=== PATIENT | female | born 1985 | race Caucasian/White ===

== ENCOUNTER → 2024-04-13 12:27 | Outpatient (CLI) | payer OTHER, SELFPAY ==
--- NOTE | 2024-04-13 12:36 | DI.RAD.S_ITS ---
PROCEDURE: XR CHEST 2V INDICATIONS: DIABETIS/SHORTNESS OF BREATH TECHNIQUE: 2 views of the chest were acquired. COMPARISON: None. FINDINGS: Surgical changes and devices: None. Lungs and pleura: Lungs are clear. No pleural effusions or pneumothorax. Mediastinum: Mediastinal contours are normal. Heart size is normal. Bones and chest wall: No suspicious bony abnormalities. Soft tissues appear unremarkable. IMPRESSION: Normal chest radiograph. Dictated by: Wilfred Rizzo M.D. on 04/14/2024 at 10:00 Approved by: Wilfred Rizzo M.D. on 04/14/2024 at 10:02
[2024-04-13 13:53] LABS: Alanine Aminotransferase 12 IU/L (<35); Albumin 4.6 g/dL (3.5-5.0); Albumin Globulin Ratio 1.7 (1.0-2.8); Alkaline Phosphatase 51 U/L (38-126); Aspartate Aminotransferase 21 IU/L (14-36); Blood Urea Nitrogen 8 mg/dL (7-17); Calcium 9.1 mg/dL (8.4-10.2); Carbon Dioxide 22 mmol/L (22-32); Chloride 103 mmol/L (98-107); Estimated Glomerular Filt Rate > 60 mL/min (>60); Globulin 2.7 g/dL (1.7-4.1); Glucose 93 mg/dL (70-100); HEMOLYSIS < 15 (0-50); Potassium 4.2 mmol/L (3.4-5.1); Sodium 137 mmol/L (137-145); Total Protein 7.3 g/dL (6.3-8.2)
[2024-04-13 14:09] LABS: Appearance Urine UA CLEAR; Bilirubin Urine UA NEGATIVE (NEGATIVE); Color Urine UA YELLOW; Glucose Urine UA NEGATIVE (Negative); Ketones Urine UA NEGATIVE (NEGATIVE); Leukocyte Esterase Urine UA NEGATIVE (NEGATIVE); Nitrite Urine UA NEGATIVE (Negative); Occult Blood Urine UA NEGATIVE (Negative); Protein Urine UA NEGATIVE (Negative); Urobilinogen Urine UA 0.2 E.U./dL (0.2)
[2024-04-13 14:47] LABS: Bacteria Urine None Seen; Culture Indicated Urine Cult Not Indicated; Mucus Urine 1+ (Negative); RBC Urine None Seen (0-5/HPF); Squamous Epithelial Cell Urine 1-5 /HPF (0-5/HPF); Urine Volume 10mL (spun); WBC Urine 0-1/HPF (0-5/HPF)
== END ==
PROVIDERS: Referring Provider Chiropractor; Visit Provider Chiropractor
DX: R06.02 Shortness of breath (principal); E11.9 Type 2 diabetes mellitus without complications; F17.210 Nicotine dependence, cigarettes, uncomplicated
CPT/HCPCS: 71046; 80053; 81001; 94060

== ENCOUNTER → 2024-05-05 15:04 | Outpatient (CLI) | payer OTHER, SELFPAY ==
--- NOTE | 2024-05-05 15:07 | DI.RAD.S_ITS ---
PROCEDURE: XR HAND RT 2V INDICATIONS: Other specified arthritis, unspecified site TECHNIQUE: 2 views of the hand(s) acquired. COMPARISON: None. FINDINGS: Bones: No fractures or dislocations. Carpal bones are normally aligned. No suspicious bony lesions. Soft tissues: No suspicious soft tissue calcifications. IMPRESSION: No acute bony abnormality. Dictated by: Josh Kirkpatrick M.D. on 05/07/2024 at 9:05 Approved by: Josh Kirkpatrick M.D. on 05/07/2024 at 9:05
--- NOTE | 2024-05-05 15:07 | DI.RAD.S_ITS ---
PROCEDURE: XR WRIST RT 2V INDICATIONS: Other specified arthritis, unspecified site TECHNIQUE: 2 views of the wrist were acquired. COMPARISON: None. FINDINGS: Bones: No fractures or dislocations. No suspicious bony lesions. Soft tissues: No suspicious soft tissue calcifications. IMPRESSION: No acute bony abnormality. Dictated by: Josh Kirkpatrick M.D. on 05/07/2024 at 9:05 Approved by: Josh Kirkpatrick M.D. on 05/07/2024 at 9:06
--- NOTE | 2024-05-05 15:07 | DI.RAD.S_ITS ---
PROCEDURE: XR HAND LT 2V INDICATIONS: Other specified arthritis, unspecified site TECHNIQUE: 2 views of the hand(s) acquired. COMPARISON: None. FINDINGS: Bones: No fractures or dislocations. Carpal bones are normally aligned. No suspicious bony lesions. Soft tissues: No suspicious soft tissue calcifications. IMPRESSION: No acute bony abnormality. Dictated by: Josh Kirkpatrick M.D. on 05/07/2024 at 9:06 Approved by: Josh Kirkpatrick M.D. on 05/07/2024 at 9:06
--- NOTE | 2024-05-05 15:07 | DI.RAD.S_ITS ---
PROCEDURE: XR WRIST LT MIN 3V INDICATIONS: Other specified arthritis, unspecified site TECHNIQUE: 2 views of the wrist were acquired. COMPARISON: None. FINDINGS: Bones: No fractures or dislocations. No suspicious bony lesions. Soft tissues: No suspicious soft tissue calcifications. IMPRESSION: No acute bony abnormality. Dictated by: Josh Kirkpatrick M.D. on 05/07/2024 at 9:07 Approved by: Josh Kirkpatrick M.D. on 05/07/2024 at 9:08
== END ==
LOC: RAD 15:05
PROVIDERS: Referring Provider Chiropractor; Visit Provider Chiropractor
DX: M13.80 Other specified arthritis, unspecified site (principal)
CPT/HCPCS: 73100; 73120

== ENCOUNTER → 2024-06-06 08:50 | Outpatient (CLI) | payer OTHER, SELFPAY ==
--- NOTE | 2020-06-06 09:39 | DI.US.S_ITS ---
Patient Name: STAN MCFADDEN date: 1985 Sex: F Attending Physician: Faiza Indications: Date: 06/06/2024 09:58 At the request of: CARLITO LAW Procedure: US breast RT limited LIMITED ULTRASOUND OF RIGHT BREAST: 06/06/2024 CLINICAL: Palpable right breast lump. Comparison is made to exam dated: 06/06/2024 mammogram - [facility]. Real-time ultrasound of the right breast retroareolar was performed. Bazan scale images of the real-time examination were reviewed. No significant abnormalities were seen sonographically in the right breast. Specifically, no finding to correspond to the patient's 11:00 right breast palpable abnormality. There is very dense fibroglandular tissue in this region. IMPRESSION: PROBABLY BENIGN No sonographic correlate to the right breast palpable abnormality. Clinical follow up is recommended for symptoms as needed. A follow-up mammogram in 6 months is recommended to demonstrate stability or incidental, probably benign right breast calcifications. Findings and recommendations were conveyed to the patient at time of exam. This exam was interpreted at Station ID: [id number]. Electronically Signed By: Chayito sheffield/:06/06/2024 09:58:06 Continued Report - Page 2 of 2 Patient Name: STAN MCFADDEN date: 1985 Sex: F Attending Physician: Faiza Indications: Date: 06/06/2024 09:58 At the request of: CARLITO LAW Procedure: US breast RT limited letter sent: Followup Recommended ACR BI-RADS Category 3: Probably Benign
--- NOTE | 2024-06-06 08:52 | DI.MG.S_ITS ---
BILATERAL DIGITAL DIAGNOSTIC MAMMOGRAM 3D/2D WITH AUGMENTATION: 06/06/2024 CLINICAL: Right breast lump x's 2 years, CBE performed, Baseline exam. No prior exams were available for comparison. The breasts are extremely dense, which lowers the sensitivity of mammography (category d />75% glandular tissue). Bilateral subpectoral silicone implants are intact. There are loosely grouped, heterogeneous, square, round, and rim calcifications in the right breast at 5 o'clock anterior depth. This correlates as an incidental finding. No other significant masses, calcifications, or other findings are seen in either breast. IMPRESSION: INCOMPLETE: NEED ADDITIONAL IMAGING EVALUATION There is no abnormality seen in the right breast to correspond with the palpable abnormality at 11 o'clock in the anterior depth. Ultrasound is recommended for full evaluation of this area. This was performed immediately following this exam. The grouped calcifications in the right breast are probably benign. Follow up right mammogram with magnification views in 6 months is recommended. Based on the Tyrer Cuzick model (a risk assessment model) the patient's lifetime risk is 9.0% and her 10 year risk is 1.0%. According to the ACR, ACS, and NCCN guidelines, an annual breast MRI exam along with mammogram is recommended if the patient's lifetime risk is 20% or greater. This exam was interpreted at Station ID: [id number]. NOTE: For mammograms, a report in lay terms will be sent to the patient. Approximately 15% of breast malignancies will not be visualized mammographically. In the management of a palpable breast mass, a negative mammogram must not discourage biopsy of a clinically suspicious lesion. Electronically Signed By: Chayito sheffield/:06/06/2024 09:56:14 Entry: - 06/09/2024 13:58:13 letter sent: Need Ultrasound ACR BI-RADS Category 0: Incomplete: Need Additional Imaging Evaluation
--- NOTE | 2024-06-06 08:52 | DI.US.S_ITS ---
PROCEDURE: US BREAST RT LIMITED COMPARISON: None. INDICATIONS: LUMP IN RIGHT BREAST FINDINGS: IMPRESSION: Dictated by: Chayito Kaiser M.D. on 06/06/2024 at 9:50 Approved by: Chayito Kaiser M.D. on 06/06/2024 at 10:00
== END ==
LOC: MAMMO 08:51
PROVIDERS: Referring Provider Family Medicine; Visit Provider Family Medicine
DX: R92.2 Inconclusive mammogram (principal); R92.1 Mammographic calcification found on diagnostic imaging of breast; N63.10 Unspecified lump in the right breast, unspecified quadrant; R92.343 Mammographic extreme density, bilateral breasts; Z98.82 Breast implant status
CPT/HCPCS: 76642; 77066; G0279

== ENCOUNTER → 2025-02-27 12:11 | Outpatient (CLI) | payer OTHER, SELFPAY ==
--- NOTE | 2025-02-27 12:12 | DI.MG.S_ITS ---
MM diagnostic mammo implant RT: 02/27/2025. BI-RADS: 3 CLINICAL: 40-year old female for right diagnostic mammogram that is a follow-up to diagnostic, bilateral, digital, tomosynthesis, with augmentatio on 06/06/2024. [facility] 11.1%. No personal or first-degree family history of breast cancer. The patient has bilateral implants. PRIOR EXAMS 06/06/2024. MAMMOGRAPHY TECHNIQUE: 2D and 3D (tomosynthesis) digital mammographic views obtained, with additional images as needed for full coverage. Current study was also evaluated with a Computer Aided Detection (CAD) system. DENSITY Right: D. The breasts are extremely dense, which lowers the sensitivity of mammography. MAMMOGRAPHY FINDINGS Right: Lower Inner at 5:00, Anterior depth: There are probably-benign grouped calcifications that are unchanged in size and appearance. IMPRESSION: Right (Calcification): Lower Inner at 5:00, Anterior depth * Probably Benign. RECOMMENDATIONS Right: Lower Inner at 5:00, Anterior depth * Six month followup with diagnostic mammography. When the patient returns for short-term unilateral followup, a mammogram for the contralateral breast will also be due. OVERALL ASSESSMENT CATEGORY BI-RADS-3: Probably Benign. ELECTRONICALLY SIGNED: Osmin Tang M.D. on 02/27/2025 at 04:30:36 PM PT Interpreting Station ID: [id number]
== END ==
LOC: MAMMO 12:12
PROVIDERS: Referring Provider Nurse Practitioner Family; Visit Provider Nurse Practitioner Family
DX: R92.8 Other abnormal and inconclusive findings on diagnostic imaging of breast (principal); R92.1 Mammographic calcification found on diagnostic imaging of breast; R92.343 Mammographic extreme density, bilateral breasts; Z98.82 Breast implant status
CPT/HCPCS: 77065; G0279

== ENCOUNTER → 2025-05-07 17:00 | Outpatient (CLI) | payer OTHER, SELFPAY ==
--- NOTE | 2025-05-07 17:01 | DI.MRI.S_ITS ---
PROCEDURE: MR HAND RT WO/W CON INDICATIONS: MASS OF RIGHT HAND TECHNIQUE: Noncontrast coronal T1 spin echo and T2 fast spin echo with fat saturation, axial proton density fast spin echo and T2 fast spin echo with fat saturation, axial T1 spin echo with fat saturation, sagittal T1 spin echo and STIR through the hand and fingers. Post-contrast axial, coronal, and sagittal T1 spin echo through the hand and fingers. COMPARISON: [facility], CR, XR HAND RT 2V, 05/05/2024, 15:07. FINDINGS: Image quality: Excellent. Bones: The bones are normally aligned, without marrow contusions or fractures. No intra-osseous lesions. Moderate effusion within the pisiform recess. Interphalangeal joint(s): The accessory and proper collateral ligaments appear intact. The volar plate demonstrates normal morphology. The extensor central slips appear intact on sagittal images. Metacarpophalangeal joint(s): The accessory and proper collateral ligaments appear intact, as well as the volar plate and adjacent deep transverse metacarpal ligaments. The sagittal bands of the extensor sosa appear normal. Extensor apparatus: The central slips insert normally on the middle phalangeal base. The conjoint and terminal tendons insert normally on the distal phalangeal bases. More proximal portions of the extensor tendons also appear normal. Flexor apparatus: The flexor digitorum superficialis and profundus tendons both appear intact. All annular and cruciform pulleys appear intact, without adjacent soft tissue edema. Soft tissues: There is a 5 mm T1 hypointense, T2 hyperintense, enhancing lesion in the subcutaneous fat volar to the 2nd metacarpal head (11:35, and 12:13), nonspecific. IMPRESSION: 5 mm enhancing lesion in the subcutaneous fat volar to the 2nd metacarpal head, nonspecific. Dictated by: Nuria Parmar M.D. on 05/08/2025 at 11:12 Approved by: Nuria Parmar M.D. on 05/08/2025 at 11:22
== END ==
PROVIDERS: Referring Provider Student in an Organized Health Care Education/Training Program; Visit Provider Student in an Organized Health Care Education/Training Program
DX: R22.31 Localized swelling, mass and lump, right upper limb (principal)
CPT/HCPCS: 73220; A9579

== ENCOUNTER 2025-06-11 10:38 | Day surgery (SDC) | payer OTHER, SELFPAY ==
[2025-06-05 13:07] VITALS: BMI 20.9
[2025-06-11 11:01] VITALS: BP 113/76; PULSE 75; RESP 16; TEMP 36.2; O2SAT 100
[2025-06-11] MEDS: APREPITANT 40 MG CAPSULE PO (11:15)
[2025-06-11] MEDS: ACETAMINOPHEN 325 MG TABLET 975 MG PO (11:15)
[2025-06-11] MEDS: LACTATED RINGERS 1,000 ML 42 ML IV (11:15)
[2025-06-11] MEDS: FAMOTIDINE 20 MG/2 ML VIAL IV (11:15)
--- NOTE | 2025-06-11 11:32 | PM.PREOP ---
Pre-operative Note Interval Note History & Physical reviewed/Exam performed by Physician: Yes Changes to H&P: No ASA Class (for procedural sedation): II
--- NOTE | 2025-06-11 12:01 | SUR.OPER ---
Lithotomy on padded OR bed, head on pillow, arms secured on padded arm boards at <90 degrees abduction. Legs secured in padded yellow fins stirrups. Surgeon in room to assist with positioning, all pressure points padded and protected
[2025-06-11] MEDS: BUPivacaine 0.25% W/ EPI (PF) 30 ML VIAL INJ (12:14)
[2025-06-11 12:33] VITALS: BP 93/55; PULSE 63; RESP 10; TEMP 36.2; O2SAT 97
--- NOTE | 2025-06-11 12:34 | PM.OP.1 ---
Operative Date/Time/Diagnoses Date of procedure: 06/11/25 Time of procedure: 12:34 Pre-op diagnosis: symptomatic chronic R bartholin cyst Post-op diagnosis: same Procedure & Clinicians Procedure: R bartholin cystectomy Same procedure(s) as scheduled: Yes Indications: chronic, symptomatic R bartholin cyst Surgeon: Lacie Cunningham Assisted?: No Anesthesia Type: General Operative Notes Findings: 2cm bartholin gland cyst, sterile serous contents Closure Type: primary Specimen(s): none sent Applied: none Estimated Blood Loss (mL): 5 Procedure in detail: The patient was taken to the operating room, placed on the operating table in the supine position and intubated with LMA.? The patient was then placed in the lithotomy position with her legs in Beka stirrups.? A timeout was performed. The patient was then examined under anesthesia with the above findings, then prepped and draped in a sterile fashion.? The cyst within the R labia was palpated with some difficult due to depth. The overlying dermis was superficially infiltrated with 0.25% bupivicaine with epinephrine for local analgesia as well as hydro-dissection. A 1cm vertical incision was made 1cm proximal to the hymenal ring in line with prior contracted scar. This incision was then further explored both bluntly and sharply using metzenbaum scissors until the cyst wall could be visualized. Bilateral stay sutures using 4-0 monocryl were placed. The cyst wall was sharply incised using the knife with spill of approximately 3cc serous non-malodorous fluid. The cyst wall was then further sharply undermined prior to being amputated using bovie cautery. The skin incision was closed using 4-0 monocryl in an interrupted fashion. Additional 3cc of local infiltrated for further non-narcotic analgesia. All wound beds inspected and noted to be hemostatic. All instruments were removed the vagina. Counts correct x2. Patient was awakened from anesthesia, extubated and transported to PACU in stable condition without complication. Complications: none Post-operative Condition: stable Disposition: PACU Plan for aftercare: anticipate dc to home pending routine postoperative recovery, routine outpatient f/u in office as scheduled
[2025-06-11 12:35] VITALS: BP 86/50; PULSE 63; RESP 8; O2SAT 96
[2025-06-11 12:40] VITALS: BP 93/52; PULSE 54; RESP 10; O2SAT 97
[2025-06-11] MEDS: KETOROLAC 30 MG/ML VIAL IV (12:42)
[2025-06-11 12:52] VITALS: BP 106/68; PULSE 71; RESP 19; TEMP 36.3; O2SAT 100
[2025-06-11 13:04] VITALS: BP 113/74; PULSE 60; RESP 13; O2SAT 100
--- NOTE | 2025-06-11 16:08 | SUR.PHASEII ---
IVs d/c'd x2. Spouse returned to surgery department after patient was discharged and asked that the patient's prescriptions be sent to [facility] in [place] as the [facility] pharmacy was closed. Dr. Cunningham notified by text.
== END 2025-06-11 13:29 | disposition home or self-care (01) ==
PROVIDERS: Referring Provider Obstetrics & Gynecology; Visit Provider Obstetrics & Gynecology
PROC: (CPT 56440; principal; 2025-06-11 11:45)
DX: N75.0 Cyst of Bartholin's gland (principal); Z87.891 Personal history of nicotine dependence
CPT/HCPCS: 56740; 81025; J0689; J1100; J1885; J2250; J2405; J2704; J3010; J7120; J8501

== ENCOUNTER 2025-06-13 12:27 | Emergency (ER) | payer OTHER, SELFPAY ==
[2025-06-13 12:38] VITALS: BP 130/74; PULSE 79; RESP 20; TEMP 37.1; O2SAT 100; BMI 23.5
--- NOTE | 2025-06-13 12:46 | DI.RAD.S_ITS ---
PROCEDURE: XR CHEST 1V INDICATIONS: Chest Pain TECHNIQUE: One view of the chest was acquired. COMPARISON: [facility], CR, XR CHEST 2V, 04/13/2024, 13:00. FINDINGS: Surgical changes and devices: None. Lungs and pleura: Lungs are clear. No pleural effusions or pneumothorax. Mediastinum: Mediastinal contours appear normal. Heart size is normal. Bones and chest wall: No suspicious bony lesions. Overlying soft tissues appear unremarkable. IMPRESSION: No acute cardiopulmonary abnormality is seen. Dictated by: Fabiano Childs M.D. on 06/13/2025 at 12:17 Approved by: Fabiano Childs M.D. on 06/13/2025 at 12:17
--- NOTE | 2025-06-13 13:14 | EKG_ITS ---
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
--- NOTE | 2025-06-13 13:51 | ED.DIZZY ---
HPI - Dizziness General Chief Complaint: Dizziness Stated Complaint: sx 2 days ago- dizzy, tunnel vision, seen by EMS Time Seen by Provider: 06/13/25 12:33 Source: patient Mode of arrival: Ambulatory History of Present Illness HPI Narrative: Patient is a 40-year-old healthy female with recent history of Bartholin cyst 06/18/2025 today with dizziness and lightheadedness. She reports that she was off work yesterday she had no trouble she took 1 hydrocodone last night before bed. This morning had her normal breakfast of potato chips went to work and felt dizzy and lightheaded almost passed out. She still does not feel well. She has some constipation she has not had any bowel movement for 5 days. Reports that any drainage from the surgery site has stopped. He has not had any fever or chills. No chest. Related Data Home Medications ?Medication ?Instructions ?Recorded ?Confirmed albuterol sulfate 90 mcg/actuation inhalation 06/01/25 06/01/25 aerosol inhaler hydroxyzine HCl 25 mg tablet mg PO PRN anxiety 06/01/25 06/01/25 Previous Rx's ?Medication ?Instructions ?Recorded acetaminophen 500 mg tablet 500 mg PO Q6H PRN pain #10 tabs 06/11/25 (Tylenol Extra Strength) naproxen 500 mg tablet 500 mg PO BID #10 tabs 06/11/25 oxycodone 5 mg tablet 5 mg PO Q6H PRN pain #7 tabs 06/11/25 sennosides 8.6 mg tablet (Senna 8.6 mg PO BEDTIME PRN constipation 06/11/25 Laxative) #30 tabs Allergies Allergy/AdvReac Type Severity Reaction Status Date / Time No Known Drug Allergies Allergy Verified 06/11/25 10:53 Patient History Medical History Bartholin's duct cyst Surgical History History of gynecologic surgery (2011) Social History household members: spouse Smoking Status: Never smoker Smoking Status: Never smoker Exam Initial Vital Signs Initial Vital Signs: Vital Signs Temperature 98.7 F 06/13/25 12:38 Pulse Rate 79 06/13/25 12:38 Respiratory Rate 20 06/13/25 12:38 Blood Pressure 130/74 06/13/25 12:38 Pulse Oximetry 100 06/13/25 12:38 Oxygen Delivery Method Room Air 06/13/25 12:38 GENERAL: Alert pleasant well-appearing 40-year-old female and in no acute distress. HEENT: Head atraumatic,EOMI, pupils reactive, face symmetric, moist mucous membranes CARDIOVASCULAR: Regular rate and rhythm without murmurs, rubs or gallops. RESPIRATORY: Breath sounds equal bilaterally, no wheezes rales or rhonchi. ABDOMEN: Soft, nontender. Normoactive bowel sounds all 4 quadrants. No guarding or rebound. EXTREMITIES: Normal range of motion, no clubbing or edema. Neurovascularly intact NEUROLOGICAL: Alert and oriented x4.Normal gait and speech. Cranial nerves II through XII grossly intact. SKIN: Warm, dry, no laceration, no petechiae, no rashes or lesions. Course Orders Ordered: ED Orders 06/13/25 12:46 XR chest 1V Stat EKG-12 Lead Stat 06/13/25 14:36 Complete Blood Count AUTO DIFF Stat Comprehensive Metabolic Panel Stat Lipase Stat Magnesium Stat NT-proBNP (BNP-Adult 18+) Stat PTT Partial Thromboplastin Elliot Stat Prothrombin Time INR Stat Troponin & CK Cardiac Panel Stat Vital Signs Vital signs: Vital Signs - 8 hr 06/13/25 12:38 06/13/25 15:12 06/13/25 15:13 Temperature 98.7 F Pulse Rate 79 66 Respiratory Rate 20 18 Blood Pressure 130/74 131/66 Pulse Oximetry 100 100 Oxygen Delivery Method Room Air 06/13/25 15:15 06/13/25 15:15 Temperature Pulse Rate 65 Respiratory Rate 12 Blood Pressure 112/60 Pulse Oximetry 100 Oxygen Delivery Method MDM - Dizziness Lab Data 06/13/25 14:36 06/13/25 14:36 Labs: Lab Results 06/13/25 Range/Units 14:36 WBC 7.5 (4.5-11.0) X10^3/uL RBC 3.80 L (4.0-5.2) X10^6/uL Hgb 12.7 (12.0-16.0) g/dL Hct 36.9 (36-46) % MCV 97.2 (80-100) fL MCH 33.6 (26-34) PG MCHC 34.5 (30-36) % RDW 12.1 (11.6-14.8) % Plt Count 209 (150-400) X10^3/uL Neut % (Auto) 68.9 (50-75) % Lymph % (Auto) 21.3 L (25-40) % [place] % (Auto) 7.6 (3-14) % Eos % (Auto) 1.4 L (2-4) % Baso % (Auto) 0.8 (0-2) % Neut # (Auto) 5200 (9557-8665) /uL Lymph # (Auto) 1600 (1528-4217) /uL [place] # (Auto) 600 (0-900) /uL Eos # (Auto) 100 (0-450) /uL Baso # (Auto) 100 (0-100) /uL PT 11.0 (9.4-12.5) SECONDS INR 1.0 (0.9-1.3) APTT 26 (25.1-36.5) SECONDS Sodium 137 (137-145) mmol/L Potassium 4.4 (3.4-5.1) mmol/L Chloride 104 (98-107) mmol/L Carbon Dioxide 25 (22-32) mmol/L BUN 10 (7-17) mg/dL Creatinine 0.58 (0.52-1.04) mg/dL Estimated GFR > 60 (>60) mL/min BUN/Creatinine Ratio 17.2 (6-22) Glucose 95 (70-99) mg/dL Calcium 8.8 (8.4-10.2) mg/dL Magnesium 1.9 (1.6-2.3) mg/dL Total Bilirubin 0.5 (0.2-1.3) mg/dL AST 20 (14-36) IU/L ALT 10 (<35) IU/L Alkaline Phosphatase 46 (38-126) U/L Total Creatine Kinase 41 (30-135) U/L Troponin I < 0.012 (0.01-0.034) ng/mL NT-Pro-B Natriuret Pep 61 (<125) pg/mL Total Protein 7.3 (6.3-8.2) g/dL Albumin 4.5 (3.5-5.0) g/dL Globulin 2.8 (1.7-4.1) g/dL Albumin/Globulin Ratio 1.6 (1.0-2.8) Lipase 51 (23-300) U/L ECG Data Attestation: I personally reviewed and interpreted this ECG as follows: Prior ECG tracings: not available for review Interpretation: Normal sinus rhythm rate 67 MN interval 136 QRS [address] changes no T-wave inversions no Q-waves no priors to compare MDM Narrative Medical decision making narrative: MDM CC: Dizziness Complicating co-morbidities: none Data collected from: Patient Medical records reviewed: Surgery records reviewed no complications Differential considered: Dehydration anemia electrolyte abnormality Exam documented above, pertinent findings include: Alert well-appearing 40-year-old female Lab Test results independently reviewed as above. Pertinent findings: CBC no leukocytosis no anemia No electrolyte abnormality no ANJALI close 95 Troponin negative Independently reviewed EKG as above Sinus rhythm no ischemia Imaging studies independently reviewed: Chest x-ray no acute cardiopulmonary process Consultations: None Treatments: None Re-evaluations: Feeling much better tolerating oral fluids Discussion: Patient 40-year-old female presenting Wednesday with dizziness lightheadedness no syncope. Blood work is overall reassuring no anemia or electrolyte abnormalities. Vitals are stable no tachycardia or hypotension. She is feeling better without any sort of intervention tolerating oral fluids no need for further workup in the ED. Discharge Plan Departure Patient Disposition: Home Clinical Impression: Near syncope Instructions: DI for Syncope in Adults (Fainting) Activity Restrictions/Additional Instructions: *You have been diagnosed with fainting or near syncope *What to do: At this time and glad you are feeling better live work was overall reassuring Make sure eating and drinking regularly *Continue to take medications as directed *Follow up with your primary care provider in 2-3 days or call [phone] *Return to ER if you should have increasing dizziness lightheadedness or passing out [or] any new, worsening or concerning symptoms Prescriptions: No Action hydroxyzine HCl 25 mg tablet PO PRN albuterol sulfate 90 mcg/actuation HFA aerosol inhaler inhalation oxycodone 5 mg tablet 5 mg PO Q6H PRN (Reason: pain) Qty: 7 0RF sennosides [Senna Laxative] 8.6 mg tablet 8.6 mg PO BEDTIME PRN (Reason: constipation) Qty: 30 0RF acetaminophen [Tylenol Extra Strength] 500 mg tablet 500 mg PO Q6H PRN (Reason: pain) Qty: 10 0RF naproxen 500 mg tablet 500 mg PO BID Qty: 10 0RF Referrals: Provider[facility]on [Primary Care Provider, Family Practice] Stand Alone Forms: Patient Portal/API
[2025-06-13 14:42] LABS: Add Manual Diff / Slide Review NO; Hematocrit 36.9 % (36-46); Hemoglobin 12.7 g/dL (12.0-16.0); Lymphocytes Absolute Auto 1600 /uL (1100-4500); Mean Corpuscular HGB Conc 34.5 % (30-36); Mean Corpuscular Hemoglobin 33.6 PG (26-34); Mean Corpuscular Volume 97.2 fL (80-100); Platelet Count 209 X10^3/uL (150-400)
[2025-06-13 14:52] LABS: INR 1.0 (0.9-1.3); Prothrombin Time 11.0 SECONDS (9.4-12.5)
[2025-06-13 14:55] LABS: PTT Partial Thromboplastin Tim 26 SECONDS (25.1-36.5)
[2025-06-13 14:58] LABS: Alanine Aminotransferase 10 IU/L (<35); Albumin 4.5 g/dL (3.5-5.0); Albumin Globulin Ratio 1.6 (1.0-2.8); Alkaline Phosphatase 46 U/L (38-126); Blood Urea Nitrogen 10 mg/dL (7-17); Calcium 8.8 mg/dL (8.4-10.2); Carbon Dioxide 25 mmol/L (22-32); Chloride 104 mmol/L (98-107); Creatine Kinase 41 U/L (30-135); Estimated Glomerular Filt Rate > 60 mL/min (>60); Globulin 2.8 g/dL (1.7-4.1); Glucose 95 mg/dL (70-99); HEMOLYSIS < 15 (0-50); Lipase 51 U/L (23-300); Magnesium 1.9 mg/dL (1.6-2.3); Potassium 4.4 mmol/L (3.4-5.1); Sodium 137 mmol/L (137-145); Total Protein 7.3 g/dL (6.3-8.2)
[2025-06-13 15:09] LABS: NT-proBNP (BNP-Adult 18+) 61 pg/mL (<125); Troponin I < 0.012 ng/mL (0.01-0.034)
[2025-06-13 15:12] VITALS: BP 131/66
[2025-06-13 15:13] VITALS: PULSE 66; RESP 18; O2SAT 100
[2025-06-13 15:15] VITALS: BP 112/60; PULSE 65; RESP 12; O2SAT 100
== END 2025-06-13 15:29 | disposition home or self-care (01) ==
PROVIDERS: Emergency Provider Emergency Medicine
DX: R55 Syncope and collapse (principal)
CPT/HCPCS: 36415; 71045; 80053; 82550; 83690; 83735; 83880; 84484; 85025; 85610; 85730; 93005; 99283; 99284